=== PATIENT | male | born 2005 | race Caucasian/White ===

== ENCOUNTER 2025-05-21 02:07 | Emergency (ER) | payer MEDICAID ==
[~2025-05-21] VITALS: Ht 177.8 cm; Wt 81.8 kg
[2025-05-21 02:55] LABS: PLATELET COUNT (AUTO) 297 K/uL (150-450); RED BLOOD CELL COUNT(AUTO) 5.29 MIL/uL (4.50-5.90); RED CELL DISTRIBUTION WIDTH 12.9 % (11.5-14.5); WHITE BLOOD COUNT (AUTO) 7.5 K/uL (4.5-11.0)
[2025-05-21 03:06] LABS: ASPARTATE AMINOTRANSFERASE 6 U/L (15-37); TOTAL PROTEIN, SERUM 7.6 g/dL (6.4-8.2)
[2025-05-21 03:07] LABS: APPEARANCE,URINE CLEAR (CLEAR); GLUCOSE, URINE (UA) >=1000 mg/dL (NEGATIVE); LEUKOCYTE ESTERASE ,URINE TRACE (NEGATIVE); NITRATE,URINE NEGATIVE (NEGATIVE); OCCULT BLOOD,URINE NEGATIVE (NEGATIVE); SPECIFIC GRAVITIY, URINE 1.034 (1.003-1.030)
[2025-05-21 03:11] LABS: CALCIUM, TOTAL 9.4 mg/dL (8.8-10.5); CREATININE 1.09 mg/dL (0.60-1.30); GLOMERULAR FILTR. RATE CALC > 60 mL/min (>60); SODIUM SERUM 131 mmol/L (136-145); UREA NITROGEN, BLOOD 20 mg/dL (7-18)
[2025-05-21 03:13] LABS: SQUAMOUS EPITHELIAL CELL,UR Few /LPF (None Seen)
[2025-05-21 03:16] LABS: GLUCOSE,RANDOM 573 mg/dL (70-110)
[2025-05-21 03:18] LABS: ACETONE,BLOOD 1:16 (NEGATIVE)
[2025-05-21] MEDS: SODIUM CHLORIDE 0.9% 1,000 ML IV ONE (03:43)
[2025-05-21] MEDS: SODIUM CHLORIDE 0.9% 1,000 ML IV SCH (04:00)
[2025-05-21] MEDS ORDERED: DEXTROSE 50%-WATER 25 GM/50 ML SYRINGE IVP PRN ×2 (04:00→08:30)
[2025-05-21] MEDS ORDERED: POTASSIUM CHLORIDE 40 MEQ in SODIUM CHLORIDE 0.45% 1,000 ML IV PRN (04:00)
[2025-05-21] MEDS ORDERED: INSULIN REGULAR, HUMAN 100 UNITS/ML IVP PRN (04:00)
[2025-05-21] MEDS ORDERED: DEXTROSE 5%-0.45% SODIUM CHL 1,000 ML IV PRN (04:00)
[2025-05-21] MEDS ORDERED: SODIUM CHLORIDE 0.45% 1,000 ML IV PRN (04:00)
[2025-05-21] MEDS ORDERED: SODIUM CHLORIDE 0.9% 100 ML ONE (04:29)
[2025-05-21] MEDS ORDERED: INSULIN REGULAR, HUMAN 100 UNITS/ML ONE (04:30)
[2025-05-21] MEDS: FAMOTIDINE 20 MG/2 ML VIAL IVP ONE (04:34)
[2025-05-21] MEDS: INSULIN REGULAR, HUMAN 100 UNITS/ML IVP ONE (04:43)
[2025-05-21] MEDS: INSULIN REGULAR, HUMAN 100 UNITS in SODIUM CHLORIDE 0.9% 99 ML IV PRN (05:15)
[2025-05-21] MEDS: POTASSIUM CHL 20 MEQ/0.45% NS 1,000 ML IV PRN (05:18)
[2025-05-21 07:46] VITALS: BP 110/73; PULSE 81; RESP 17; TEMP 98.1; O2SAT 98
[2025-05-21 08:11] LABS: CALCIUM, TOTAL 8.9 mg/dL (8.8-10.5); CREATININE 0.86 mg/dL (0.60-1.30); GLOMERULAR FILTR. RATE CALC > 60 mL/min (>60); GLUCOSE,RANDOM 320 mg/dL (70-110); SODIUM SERUM 134 mmol/L (136-145); UREA NITROGEN, BLOOD 16 mg/dL (7-18)
[2025-05-21 08:15] LABS: ASPARTATE AMINOTRANSFERASE 5 U/L (15-37); PHOSPHORUS 3.7 mg/dL (2.5-4.9); TOTAL PROTEIN, SERUM 6.9 g/dL (6.4-8.2)
[2025-05-21] MEDS ORDERED: ACETAMINOPHEN 325 MG TABLET PO PRN (08:30)
[2025-05-21] MEDS ORDERED: ONDANSETRON HCL 4 MG/2 ML VIAL IVP PRN (08:30)
[2025-05-21] MEDS ORDERED: INSULIN LISPRO 100 UNITS/ML SQ PRN (08:30)
[2025-05-21] MEDS: DOCUSATE SODIUM 100 MG CAPSULE PO SCH (08:32)
[2025-05-21] MEDS: RINGERS SOLUTION,LACTATED 1,000 ML IV ONE (08:32)
[2025-05-21] MEDS: INSULIN GLARGINE,HUM.REC.ANLOG 100 UNITS/ML SQ SCH (08:34)
[2025-05-21] MEDS: RINGERS SOLUTION,LACTATED 1,000 ML IV SCH (08:49)
[2025-05-21 08:55] LABS: GLUCOMETER DEV NAME(LOC) ERT.7; GLUCOSE,POINT OF CARE 266 MG/DL (70-110)
[2025-05-21 08:55] LABS: GLUCOMETER DEV NAME(LOC) ERT.7; GLUCOSE,POINT OF CARE 311 MG/DL (70-110)
[2025-05-21 10:28] LABS: CALCIUM, TOTAL 8.6 mg/dL (8.8-10.5); CREATININE 0.85 mg/dL (0.60-1.30); GLOMERULAR FILTR. RATE CALC > 60 mL/min (>60); GLUCOSE,RANDOM 355 mg/dL (70-110); SODIUM SERUM 132 mmol/L (136-145); UREA NITROGEN, BLOOD 15 mg/dL (7-18)
[2025-05-21] MEDS ORDERED: HEPARIN SODIUM,PORCINE 5,000 UNITS/ML VIAL SQ SCH (16:00)
== END 2025-05-21 11:56 | disposition admitted as inpatient to this hospital (09) ==
LOC: EMS 02:12 → EDBEDREQ 06:12 → EDH 06:20 → UNDOADMIN 06:20 → UNDODISIN 14:58
DX: E11.10 Type 2 diabetes mellitus with ketoacidosis without coma (principal); K29.70 Gastritis, unspecified, without bleeding; R10.9 Unspecified abdominal pain
CPT/HCPCS: 99291; 96365; 96361; 96366; 96375; 80053; 81001; 82009; 82962; 83735; 84100; 85025; 93005; 80048; 80076; 36415; J3490; J7120; J7030; J7050; J3480; J1815 ×2